=== PATIENT | male | born 1975 | race Caucasian/White ===

== ENCOUNTER 2018-04-02 11:30 | Emergency (ER) | payer BC, OTHER ==
[~2018-04-02] VITALS: Ht 167.6 cm; Wt 94.8 kg
[2018-04-02 11:47] VITALS: BP 171/111
[2018-04-02 11:53] LABS: BASOPHIL % 0.2 % (0.0-0.2); HEMOGLOBIN 11.8 g/dL (13.9-16.3); LYMPHOCYTES # 1.1 10^3/uL (1.0-4.8); LYMPHOCYTES % 6.3 % (24.0-44.0); MEAN CELL HGB 26.6 pg (26-34); MEAN CELL HGB CONCENTRATION 31.6 g/dL (33-37); MEAN CORP VOLUME 84.2 fL (78-100); MEAN PLATELET VOLUME 8.4 fL (7.8-11.0); MONOCYTES % 5.7 % (5.0-12.0); NEUTROPHIL # 14.7 10^3/uL (1.8-7.7); WHITE BLOOD CELL 17.1 10^3/uL (4.5-11.0)
[2018-04-02] MEDS ORDERED: PREDNISONE PO STA (11:54)
[2018-04-02] MEDS ORDERED: DUONEB 0.5 MG-3 MG/3 ML SOLN IH STA (11:54)
[2018-04-02] MEDS ORDERED: DECADRON IH STA (11:54)
[2018-04-02] MEDS ORDERED: NS 1000ML 1,000 ML IV ONE (12:00)
--- NOTE | 2018-04-02 12:06 | DIREP ---
PROCEDURE:CHEST 2 VIEWS COMPARISON:None. INDICATIONS:dyspnea FINDINGS: LUNGS/PLEURA:No significant pulmonary parenchymal abnormalities. No effusions. VASCULATURE:Normal. Unremarkable pulmonary vasculature. CARDIAC:Normal. No cardiac silhouette abnormality or cardiomegaly. MEDIASTINUM:There is pneumomediastinum. BONES:Normal. No fracture or visible bony lesion. OTHER:Extensive subcutaneous emphysema over the right chest and neck and left neck. Surgical clips right upper quadrant of the abdomen. CONCLUSION: 1. Pneumomediastinum. 2. Subcutaneous emphysema. Dictated by: Chi Rai M.D. on 04/02/2018 at 12:03 PM
[2018-04-02] MEDS ORDERED: DUONEB 0.5 MG-3 MG/3 ML SOLN IH ONE (12:08)
[2018-04-02 12:16] LABS: ALANINE AMINOTRANSFERASE(ML) 26 U/L (12-78); ALKALINE PHOSPHATASE 52 U/L (50-136); ASPARTATE AMINO TRANSFERASE 25 U/L (0-35); CARBON DIOXIDE 24.2 mmol/L (20.0-32); GLUCOSE 152 mg/dL (70-110)
[2018-04-02] MEDS ORDERED: MORPHINE SULFATE IM STA (12:29)
--- NOTE | 2018-04-02 13:08 | PCM.EKG ---
[facility] Test Date: 2018-04-02 Test Time: 13:10:37 Pat Name: CORNELL VIZCAINO Department: Patient ID: [id number] Room: Gender: M Perl Programmer: BRAN : 1975 Requested By: FLAVIO BURCH Order Number: [id number] Reading MD: Wilbur Harper Measurements Intervals [place] Rate: 125 P: 46 MN: 124 QRS: 50 QRSD: 78 T: 29 QT: 296 QTc: 427 Interpretive Statements Sinus tachycardia Voltage criteria for left ventricular hypertrophy Abnormal ECG No previous ECG available for comparison Electronically Signed On 04-05-2018 7:40:01 CDT by Wilbur Harper Please click the below link to view image of tracing.
--- NOTE | 2018-04-02 13:09 | ER.PDOC ---
General Chief Complaint: Dyspnea/Respdistress Stated Complaint: SOB, H/O ESOPHAGEAL RUPTURE, Time seen by MD: 13:00 Source: patient Exam Limitations: no limitations History of Present Illness Timing/Duration: 24 hours Severity: mild Activities at Onset: activity/exertion, rest Prior Episodes/Possible Cause: occasional episodes Associated Symptoms: pain Prior symptoms/Treatment: Similar symptoms previous Past Medical History Medical History: hypertension Surgical History: appendectomy, other Family History Significant Family History: no pertinent family hx Social History Smoking: non-smoker, other Alcohol Use: none Drug Use: none Reviewed Nursing Reviewed: Vital Signs, Abn. Noted Review of Systems All Other Systems: Reviewed and Negative Physical Exam General Appearance: No Apparent Distress, WD/WN HEENT: Other (SURGICAL EMPHYSEMA) Cardiovascular: Normal Peripheral Pulses, Regular Rate, Rhythm, No Edema, No Gallop, No JVD, No Murmur Gastrointestinal: Normal Bowel Sounds, No Organomegaly, No Pulsatile Mass, Non Tender, Soft Extremities: Normal Range of Motion, Non-Tender, Normal Inspection, No Pedal Edema, No Calf Tenderness, Normal Capillary Refill Neurologic/Psychiatric: digital media representative II-XII NML as Tested, No Motor/Sensory Deficits, Alert, Normal Mood/Affect, Oriented x 3 Skin: Normal Color, Warm/Dry Lymphatic: No Adenopathy Results/Orders Results/Orders Laboratory Tests Test 04/02/18 11:45 White Blood Count 17.1 10^3/uL (4.5-11.0) Red Blood Count 4.44 10^6/uL (4.50-5.90) Hemoglobin 11.8 g/dL (13.9-16.3) Hematocrit 37.4 % (37.0-53.0) Mean Corpuscular Volume 84.2 fL (78-100) Mean Corpuscular Hemoglobin 26.6 pg (26-34) Mean Corpuscular Hemoglobin Concent 31.6 g/dL (33-37) Red Cell Distribution Width 15.0 % (11.5-14.5) Platelet Count 429 10^3/uL (150-400) Mean Platelet Volume 8.4 fL (7.8-11.0) Neutrophils (%) (Auto) 86.0 % (41.0-85.0) Lymphocytes (%) (Auto) 6.3 % (24.0-44.0) Monocytes (%) (Auto) 5.7 % (5.0-12.0) Neutrophils # (Auto) 14.7 10^3/uL (1.8-7.7) Lymphocytes # (Auto) 1.1 10^3/uL (1.0-4.8) Monocytes # (Auto) 1.0 10^3/uL (0.3-0.8) Absolute Immature Granulocyte (auto 0.30 10^3 u/L (0-2) Eosinophils % 0.0 % (0.0-5.0) Basophils % 0.2 % (0.0-0.2) Basophils # 0.0 10^3/uL (0.0-0.1) Eosinophil Count 0.0 10^3/uL (0.0-0.2) Prothrombin Time 10.9 SEC (9.8-11.9) Prothrombin Time INR (Non-Therap) 1.1 Activated Partial Thromboplast Time 23.3 SEC (24.67-30.72) D-Dimer 0.53 mg/L (0.19-0.49) Sodium Level 140 mmol/L (132-145) Potassium Level 3.3 mmol/L (3.6-5.2) Chloride Level 105.0 mmol/L (96-109) Carbon Dioxide Level 24.2 mmol/L (20.0-32) Anion Gap 14.1 Blood Urea Nitrogen 19 mg/dL (7-18) Creatinine 1.34 mg/dL (0.59-1.40) Estimated GFR () 71.4 (>/=60) BUN/Creatinine Ratio 14.0 Glucose Level 152 mg/dL (70-110) Calcium Level 8.0 mg/dL (8.4-10.5) Total Bilirubin 0.5 mg/dL (0.2-1.0) Aspartate Amino Transf (AST/SGOT) 25 U/L (0-35) Alanine Aminotransferase (ALT/SGPT) 26 U/L (12-78) Alkaline Phosphatase 52 U/L (50-136) Total Creatine Kinase 227 U/L (39-308) Creatine Kinase MB 3.0 ng/mL (0.5-3.6) Troponin I < 0.02 ng/mL (0.00-0.05) Pro-B-Type Natriuretic Peptide 528 pg/mL (0-125) Total Protein 6.1 g/dL (6.4-8.2) Albumin 3.7 g/dL (3.4-5.0) Globulin 2.4 Thyroid Stimulating Hormone (TSH) 0.326 mIU/mL (0.358-3.740) Percent Immature Gran (Cell Imm) 1.80 % (0.00-0.50) Helicobacter pylori Screen NEGATIVE (NEGATIVE) Administered Medications Medications (Trade) Dose Ordered Sig/Myke Route PRN Reason Start Time Stop Time Status Last Admin Dose Admin Morphine Sulfate (Morphine Sulfate) 4 mg STAT STAT IM 04/02/18 12:29 04/02/18 12:30 DC 04/02/18 13:58 Departure Time of Disposition: 13:33 Disposition: 70 DISC/XFER TO [facility] Impression: Primary Impression: Surgical emphysema Condition: Stable Referrals: PCP,UNKNOWN (PCP) PRIMARY CARE PROVIDER Duration or Time Spent with Pa: 2 HRS FLAVIO BURCH MD Apr 02, 2018 13:09
[2018-04-02 13:18] VITALS: BP 184/118
--- NOTE | 2018-04-02 13:30 | NUR ---
Update Pt. has called [facility] because pt would like to be transfered there due to insurance. Pt. was accepted but did not have a way to get to [place] because we have trauma centers closer than that facility. Explained that to the patient where he then decided that he would agree to go some where closer.
[2018-04-02] MEDS ORDERED: MORPHINE SULFATE ONE (13:52)
[2018-04-02] MEDS ORDERED: SUBLIMAZE IM STA (14:01)
[2018-04-02 14:03] VITALS: BP 157/124
--- NOTE | 2018-04-02 14:03 | NUR ---
RAND White on phone with from [facility]
--- NOTE | 2018-04-02 14:05 | NUR ---
Update [facility] declined pt. due to no thoracic surgeon
--- NOTE | 2018-04-02 14:20 | NUR ---
Update Pt. refused to have centeral line placed by Dr. White, states that he has a contract with the hospital and knows that his complany [employer] can come in and place a midline. Pt. refuses us to look and will only agree to a midline placed
--- NOTE | 2018-04-02 14:22 | NUR ---
[facility] Spoke to [facility] Transfer line. She will get jose j of ENT and have him call Dr. White back
--- NOTE | 2018-04-02 14:25 | NUR ---
Update Pt. was accepted to [facility]
--- NOTE | 2018-04-02 14:30 | NUR ---
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 Pt. states that he does not want anything else other than a midline. Humaira states that [facility] has a contract with us and if Cori Oconnor would come and put it in than it was ok.
[2018-04-02 14:34] LABS: BAND NEUTROPHILS 2 % (2-6); LYMPHOCYTE 8 % (25-36); MONOCYTE 4 % (3-9); SEGMENTED NEUTROPHILS 86 % (31-76)
--- NOTE | 2018-04-02 14:59 | NUR ---
Update Cori Oconnor at pts. bedside to do midline
[2018-04-02] MEDS ORDERED: PREDNISONE ONE (15:54)
[2018-04-02] MEDS ORDERED: NS 1000ML 1,000 ML ONE (15:55)
[2018-04-02] MEDS ORDERED: SUBLIMAZE ONE (15:56)
[2018-04-02] MEDS ORDERED: CATAPRES ONE (16:05)
[2018-04-02] MEDS ORDERED: SUBLIMAZE IV STA (16:08)
[2018-04-02] MEDS ORDERED: CATAPRES PO STA (16:11)
[2018-04-02] MEDS ORDERED: NS 100ML 100 ML IV ONE (16:15)
[2018-04-02] MEDS ORDERED: ZOSYN 3.375 GRAM VIAL IV ONE (16:15)
--- NOTE | 2018-04-02 16:20 | NUR ---
[facility] is headed to [facility] ER
[2018-04-02] MEDS ORDERED: TEST5GEL TP (16:21)
[2018-04-02] MEDS ORDERED: GABA300C10 PO (16:21)
[2018-04-02] MEDS ORDERED: FURO40TA4 PO (16:21)
[2018-04-02] MEDS ORDERED: PRED20TA PO (16:21)
[2018-04-02] MEDS ORDERED: PANT40TA3 PO (16:21)
[2018-04-02] MEDS ORDERED: DILT360C PO (16:21)
[2018-04-02] MEDS ORDERED: ASPI325T14 PO (16:21)
[2018-04-02] MEDS ORDERED: SPIR25TA PO (16:21)
[2018-04-02] MEDS ORDERED: ZALE10CA PO (16:21)
[2018-04-02] MEDS ORDERED: HYDR100T24 PO (16:21)
[2018-04-02] MEDS ORDERED: POTA20TA14 PO (16:21)
[2018-04-02] MEDS ORDERED: METO100T7 PO (16:21)
[2018-04-02] MEDS ORDERED: TRAM50TA PO (16:21)
[2018-04-02 16:23] VITALS: BP 194/118
--- NOTE | 2018-04-02 16:25 | NUR ---
[facility] Lif[facility]ar at pt beside
[2018-04-02] MEDS ORDERED: ZOSYN 3.375 GRAM VIAL 3.375 GM in NS 100ML 100 ML IV SCH (16:30)
--- NOTE | 2018-04-02 16:54 | NUR ---
NIDHI Gave report to Kayli at [facility] ER
== END 2018-04-02 16:36 | disposition other institution (70) ==
LOC: ER 11:30 → EDBD 11:30 → ER 16:36
DX: T81.82XA Emphysema (subcutaneous) resulting from a procedure, initial encounter (principal); I10 Essential (primary) hypertension; F17.210 Nicotine dependence, cigarettes, uncomplicated; R79.1 Abnormal coagulation profile; Z90.49 Acquired absence of other specified parts of digestive tract
CPT/HCPCS: 36415; 71046; 80053; 82550; 82553; 83880; 84443; 84484; 85025; 85379; 85610; 85730; 86677; 93005; 96372; 96374; 96375; 99285; J2270; J2543; J3010; J7030; J7050; J7512; 96365; J7620; C1751